=== PATIENT | female | born 1990 | race African-American/Black ===

== ENCOUNTER 2019-01-25 16:35 | Emergency (ER) | payer BC ==
[2019-01-25 18:37] LABS: Absolute Lymphocytes (CBC) 0.9 K/uL (0.7-4.9); Absolute Neutrophil 8.7 K/uL (1.8-8.0); Basophils % 0.8 % (0-1.3); Eosinophils % 0.7 % (0-4.4); Hematocrit 29.9 % (36.0-45.0); Lymphocytes % 8.6 % (15.3-44.8); MPV 9.3 fL (7.6-11.3); Monocytes % 9.6 % (3.3-12.3); RBC Red Blood Cell Count 4.92 M/uL (3.86-4.86)
[2019-01-25] MEDS ORDERED: MORPHINE 4 MG/ML SYR ONE (18:38)
[2019-01-25] MEDS ORDERED: ONDANSETRON 4 MG/2 ML VIAL ONE (18:38)
[2019-01-25] MEDS ORDERED: NA CHLORIDE 0.9% 1,000 ML ONE (18:38)
[2019-01-25 18:55] LABS: Urine Blood NEGATIVE (NEG); Urine Glucose NEGATIVE (NEG); Urine Protein 1+ (NEG); Urine Specific Gravity 1.015 (1.005-1.030); Urine pH 8.5 (5.0-7.0)
[2019-01-25 18:56] LABS: ALT/SGPT 19 U/L (12-78); AST/SGOT 10 U/L (15-37); Albumin 3.9 g/dL (3.4-5.0); Alkaline Phosphatase 94 U/L (45-117); BUN Blood Urea Nitrogen 9 mg/dL (7-18); Bicarbonate 28 mmol/L (21-32); Bilirubin Direct 0.1 mg/dL (0-0.2); Bilirubin Total 0.3 mg/dL (0.2-1.0); Glucose Level 83 mg/dL (74-106); Lipase 113 U/L (73-393); Potassium 3.5 mmol/L (3.5-5.1); Protein, Total 8.9 g/dL (6.4-8.2); Sodium Level 138 mmol/L (136-145)
[2019-01-25 19:20] LABS: Anisocytosis 2+; Blood Morphology Comment NOTED (NOT SEEN); Hypochromasia 2+; Platelet Estimate ADEQ; Urine White Blood Cell Casts OK
--- NOTE | 2019-01-25 19:43 | RAD REPORT ---
EXAM DESCRIPTION: CT - Abdomen Pelvis W Contrast - 01/25/2019 7:15 pm CLINICAL HISTORY: Abdominal pain with nausea. COMPARISON: none. TECHNIQUE: Computed axial tomography of the abdomen pelvis was obtained. 100 cc Isovue-300 was admin istered intravenously. Oral contrast was not requested which limits evaluation of bowel. All CT scans are performed using dose optimization technique as appropriate and may include automated exposure control or mA/KV adjustment according to patient size. FINDINGS: The liver, spleen, pancreas, adrenal and kidneys appear unremarkable. There is no evidence of diverticulitis. A normal appendix 4 centimeter left ovarian cyst. No significant free fluid IMPRESSION: 4 centimeter left ovarian cyst without significant free fluid. Follow up ultrasound in a couple months recommended to assess stability/resolution
--- NOTE | 2019-01-25 19:59 | EDPHYS ---
Physician Documentation [facility] Name: Lito Lee Age: 28 yrs Sex: Female : 1990 Arrival Date: 01/25/2019 Time: 16:38 Bed 28 Private MD: None, None ED Physician Alexy Leslie HPI: 01/25 18:15 This 28 yrs old Black Female presents to ER via Ambulatory with complaints of Abdominal pm1 Pain. 18:15 The patient presents with abdominal pain in the left lower quadrant. Onset: The pm1 symptoms/episode began/occurred today. The symptoms do not radiate. Associated signs and symptoms: Pertinent negatives: nausea, vomiting, and diarrhea, chest pain, dysuria, fever, shortness of breath. The symptoms are described as sharp. Modifying factors: The symptoms are alleviated by nothing, the symptoms are aggravated by nothing. Severity of pain: in the emergency department the pain has improved. The patient has not experienced similar symptoms in the past. The patient has not recently seen a physician. 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 - Social history:: Smoking status: . - Ebola Screening: : Patient denies travel to an Ebola-affected area in the 21 days before illness onset. ROS: 18:15 Constitutional: Negative for fever, chills, and weight loss, Eyes: Negative for injury, pm1 pain, redness, and discharge, ENT: Negative for injury, pain, and discharge, Neck: Negative for injury, pain, and swelling, Cardiovascular: Negative for chest pain, palpitations, and edema, Respiratory: Negative for shortness of breath, cough, wheezing, and pleuritic chest pain. 18:15 Back: Negative for injury and pain, : Negative for injury, bleeding, discharge, and swelling, MS/Extremity: Negative for injury and deformity, Skin: Negative for injury, rash, and discoloration, Neuro: Negative for headache, weakness, numbness, tingling, and seizure. 18:15 Abdomen/GI: Positive for abdominal pain, of the left lower quadrant, Negative for nausea, vomiting, and diarrhea. Exam: 18:15 Constitutional: This is a well developed, well nourished patient who is awake, alert, pm1 and in no acute distress. Head/Face: Normocephalic, atraumatic. Eyes: Pupils equal round and reactive to light, extra-ocular motions intact. Lids and lashes normal. Conjunctiva and sclera are non-icteric and not injected. Cornea within normal limits. Periorbital areas with no swelling, redness, or edema. ENT: Nares patent. No nasal discharge, no septal abnormalities noted. Tympanic membranes are normal and external auditory canals are clear. Oropharynx with no redness, swelling, or masses, exudates, or evidence of obstruction, uvula midline. Mucous membranes moist. Neck: Trachea midline, no thyromegaly or masses palpated, and no cervical lymphadenopathy. Supple, full range of motion without nuchal rigidity, or vertebral point tenderness. No Meningismus. Chest/axilla: Normal chest wall appearance and motion. Nontender with no deformity. No lesions are appreciated. Cardiovascular: Regular rate and rhythm with a normal S1 and S2. No gallops, murmurs, or rubs. Normal PMI, no JVD. No pulse deficits. Respiratory: Lungs have equal breath sounds bilaterally, clear to auscultation and percussion. No rales, rhonchi or wheezes noted. No increased work of breathing, no retractions or nasal flaring. 18:15 Back: No spinal tenderness. No costovertebral tenderness. Full range of motion. Skin: Warm, dry with normal turgor. Normal color with no rashes, no lesions, and no evidence of cellulitis. MS/ Extremity: Pulses equal, no cyanosis. Neurovascular intact. Full, normal range of motion. 18:15 Abdomen/GI: Inspection: abdomen appears normal, Bowel sounds: normal, in the left lower quadrant, Palpation: soft, mild abdominal tenderness, in the left lower quadrant, mass, is not appreciated, rebound tenderness, is not appreciated. 18:15 Neuro: Orientation: is normal, Motor: is normal, moves all fours, Sensation: is normal, no obvious gross deficits, Gait: is steady, at a normal pace, without difficulty. Vital Signs: 16:43 BP 123 / 61; Pulse 86; Resp 17; Temp 98.2(TE); Pulse Ox 100% on R/A; Pain 10/10; tw2 18:00 BP 114 / 72; Pulse 83; Resp 16; Temp 98.4; Pulse Ox 100% ; tf1 18:30 BP 122 / 98; Pulse 83; Resp 17; Pulse Ox 100% ; rv 19:00 BP 120 / 79; Pulse 80; Resp 16; Pulse Ox 100% ; rv 20:00 BP 112 / 69; Pulse 78; Resp 17; Pulse Ox 100% ; rv 20:30 BP 106 / 64; Pulse 80; Resp 16; Temp 98; Pulse Ox 100% ; rv MDM: 17:49 Patient medically screened. pm1 19:58 Data reviewed: vital signs. Data interpreted: Pulse oximetry: on room air is 100 %. pm1 Interpretation: normal. Counseling: I had a detailed discussion with the patient and/or guardian regarding: the historical points, exam findings, and any diagnostic results supporting the discharge/admit diagnosis, lab results, radiology results, the need for outpatient follow up, for definitive care, an OB/Gyne specialist, to return to the emergency department if symptoms worsen or persist or if there are any questions or concerns that arise at home. 01/25 17:56 Order name: Urine Dipstick--Ancillary (enter results); Complete Time: 19:43 eb 01/25 17:56 Order name: Urine --Ancillary (enter results); Complete Time: 19:43 eb 01/25 18:00 Order name: Basic Metabolic Panel; Complete Time: 19:43 pm1 01/25 18:00 Order name: CBC with Diff; Complete Time: 19:43 pm1 01/25 18:00 Order name: Creatinine for Radiology; Complete Time: 19:43 pm1 01/25 18:00 Order name: Hepatic Function; Complete Time: 19:43 pm1 01/25 18:00 Order name: Lipase; Complete Time: 19:43 pm1 01/25 18:00 Order name: IV Saline Lock; Complete Time: 18:30 pm1 01/25 18:13 Order name: CT Abd/Pelvis - W/Contrast: IV contrast only; Complete Time: 19:58 pm1 01/25 18:39 Order name: CBC Smear Scan; Complete Time: 19:43 EDMS 01/25 18:00 Order name: Labs collected and sent; Complete Time: 18:30 pm1 01/25 18:00 Order name: Urine Dipstick-Ancillary (obtain specimen); Complete Time: 18:08 pm1 01/25 18:00 Order name: Urine Test (obtain specimen); Complete Time: 18:08 pm1 Administered Medications: 18:30 Drug: morphine 4 mg Route: IVP; Site: left antecubital; rv 18:30 Drug: Zofran 4 mg Route: IVP; Site: left antecubital; rv 18:30 Drug: NS 0.9% 1000 ml Route: IV; Rate: 1000 ml; Site: left antecubital; rv 20:20 Follow up: IV Status: Completed infusion rv 20:20 Follow up: IV Intake: 1000ml rv 20:20 Drug: TORadol 30 mg Route: IVP; Site: left antecubital; rv Disposition: 01/26 09:07 Co-signature as Attending Physician, Alexy Leslie MD I agree with the assessment and kdr plan of care. Disposition: 01/25/19 19:58 Discharged to Home. Impression: Other ovarian cysts. - Condition is Stable. - Discharge Instructions: Ovarian Cyst. - Prescriptions for Naprosyn 500 mg Oral Tablet - take 1 tablet by ORAL route 2 times per day take with food; 30 tablet. Tylenol- Codeine #3 300-30 mg Oral Tablet - take 2 tablets by ORAL route every 6 hours As needed; 20 tablet. - Work release form, Medication Reconciliation Form, Thank You Letter, Antibiotic Education, Prescription Opioid Use form. - Follow up: Emergency Department; When: As needed; Reason: Worsening of condition. Follow up: Private Physician; When: 2 - 3 days; Reason: Recheck today's complaints, Continuance of care, Re-evaluation by your physician. - Problem is new. - Symptoms have improved. Signatures: Dispatcher [employer] EDMS Alexy Leslie MD MD kdr Marinas, Patrick, NP BOILER ASSISTANT OPERATOR pm1 Kanika Flynn RN RN tw2 Marco Cueva RN RN rv Corrections: (The following items were deleted from the chart) 01/25 21:19 19:58 01/25/2019 19:58 Discharged to Home. Impression: Other ovarian cysts. Condition rv is Stable. Forms are Medication Reconciliation Form, Thank You Letter, Antibiotic Education, Prescription Opioid Use. Follow up: Emergency Department; When: As needed; Reason: Worsening of condition. Follow up: Private Physician; When: 2 - 3 days; Reason: Recheck today's complaints, Continuance of care, Re-evaluation by your physician. Problem is new. Symptoms have improved. pm1
--- NOTE | 2019-01-25 19:59 | ER ---
Nurse's Notes [facility] Name: Lito Lee Age: 28 yrs Sex: Female : 1990 Arrival Date: 01/25/2019 Time: 16:38 Bed 28 Private MD: None, None Diagnosis: Other ovarian cysts Presentation: 01/25 16:42 Presenting complaint: Patient states: the bottom of my stomach hurts so bad its like a tw2 sharp pain real low, when the pain starts to hit me i get a little dizzy. Transition of care: patient was not received from another setting of care. Onset of symptoms was January 25, 2019. Risk Assessment: Do you want to hurt yourself or someone else? Patient reports no desire to harm self or others. Initial Sepsis Screen: Does the patient meet any 2 criteria? No. Patient's initial sepsis screen is negative. Does the patient have a suspected source of infection? No. Patient's initial sepsis screen is negative. Care prior to arrival: None. 16:42 Method Of Arrival: Ambulatory tw2 16:42 Acuity: ALISHA 3 tw2 Triage Assessment: 16:45 General: Appears in no apparent distress. Behavior is calm, cooperative, appropriate tw2 for age. Pain: Complains of pain in suprapubic area. GI: Reports lower abdominal pain. 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 - Social history:: Smoking status: . - Ebola Screening: : Patient denies travel to an Ebola-affected area in the 21 days before illness onset. Screenin:59 Abuse screen: Denies threats or abuse. Denies injuries from another. Nutritional rv screening: No deficits noted. Tuberculosis screening: No symptoms or risk factors identified. Fall Risk None identified. Assessment: 17:57 General: Appears in no apparent distress. comfortable, Behavior is calm, cooperative. rv Pain: Complains of pain in left lower quadrant. Pain: Quality of pain is described as sharp, Is intermittent. Neuro: Level of Consciousness is awake, alert, obeys commands, Oriented to person, place, time, situation. Cardiovascular: Patient's skin is warm and dry. Respiratory: Airway is patent. GI: Bowel sounds present X 4 quads. Abd is soft and non tender X 4 quads. : No signs and/or symptoms were reported regarding the genitourinary system. EENT: No signs and/or symptoms were reported regarding the EENT system. Derm: Skin is intact. Musculoskeletal: No signs and/or symptoms reported regarding the musculoskeletal system. Vital Signs: 16:43 BP 123 / 61; Pulse 86; Resp 17; Temp 98.2(TE); Pulse Ox 100% on R/A; Pain 10/10; tw2 18:00 BP 114 / 72; Pulse 83; Resp 16; Temp 98.4; Pulse Ox 100% ; tf1 18:30 BP 122 / 98; Pulse 83; Resp 17; Pulse Ox 100% ; rv 19:00 BP 120 / 79; Pulse 80; Resp 16; Pulse Ox 100% ; rv 20:00 BP 112 / 69; Pulse 78; Resp 17; Pulse Ox 100% ; rv 20:30 BP 106 / 64; Pulse 80; Resp 16; Temp 98; Pulse Ox 100% ; rv ED Course: 16:38 Patient arrived in ED. mr 16:39 None, None is Private Physician. mr 16:43 Triage completed. tw2 16:43 Arm band placed on. tw2 17:46 Telly Vela, AMARA is PHCP. pm1 17:46 Alexy Leslie MD is Attending Physician. pm1 17:49 Marco Cueva, OTONIEL is Primary Nurse. rv 17:59 Patient has correct armband on for positive identification. Placed in gown. Bed in low rv position. Call light in reach. Side rails up X 1. Pulse ox on. NIBP on. 18:15 Radiology exam delayed due to lab results not completed at this time. test vm2 not completed at this time. 18:23 Inserted saline lock: 20 gauge in left antecubital area, using aseptic technique. Blood rv collected. 19:16 CT Abd/Pelvis - W/Contrast: IV contrast only In Process Unspecified. EDMS 20:54 No provider procedures requiring assistance completed. IV discontinued, intact, rv bleeding controlled, No redness/swelling at site. Pressure dressing applied. Administered Medications: 18:30 Drug: morphine 4 mg Route: IVP; Site: left antecubital; rv 18:30 Drug: Zofran 4 mg Route: IVP; Site: left antecubital; rv 18:30 Drug: NS 0.9% 1000 ml Route: IV; Rate: 1000 ml; Site: left antecubital; rv 20:20 Follow up: IV Status: Completed infusion rv 20:20 Follow up: IV Intake: 1000ml rv 20:20 Drug: TORadol 30 mg Route: IVP; Site: left antecubital; rv Intake: 20:20 IV: 1000ml; Total: 1000ml. rv Outcome: 19:58 Discharge ordered by MD. pm1 20:54 Discharged to home ambulatory. rv 20:54 Condition: good 20:54 Discharge instructions given to patient, Instructed on discharge instructions, follow up and referral plans. medication usage, Demonstrated understanding of instructions, follow-up care, medications, Prescriptions given X 2. 21:19 Patient left the ED. rv Signatures: Dispatcher [employer] EDOH Anika Alston Patrick, AMARA INSTRUCTIONAL COORDINATOR pm1 Kanika Flynn RN RN 2 Wendy Mckenna 2 Marco Cueva RN RN rv Brenda Park, RN RN tf1 Corrections: (The following items were deleted from the chart) 18:36 18:00 BP 114 / 72; Resp 18bpm; Pulse Ox 100%; tf1 tf1 18:43 18:00 BP 114 / 72; Pulse 83bpm; Resp 16bpm; Pulse Ox 100%; tf1 tf1
[2019-01-25] MEDS ORDERED: KETOROLAC 30 MG/ML INJ ONE (20:31)
== END 2019-01-25 21:19 | disposition home or self-care (01) ==
LOC: ER 16:35
DX: N83.299 Other ovarian cyst, unspecified side (principal)
CPT/HCPCS: 36415; 74177; 80048; 80076; 81003; 81025; 83690; 85025; 96361; 96374; 96375; 99284; J2405; J7030; Q9967

== ENCOUNTER 2020-04-07 14:24 | Emergency (ER) | payer BC ==
--- OUTSIDE RECORDS SUMMARY | 2020-04-07 15:10 | XMS REPORT | Continuity of Care Document ---
:1990 Author Organization [facility] Address [address] [place] [address] Care Team Providers Name Role Phone Unavailable Unavailable Unavailable Payers Payer Name Policy Type Policy Number Effective Date Expiration Date S ource Problems This patient has no known problems. Allergies, Adverse Reactions, Alerts Allergy Allergy Status Severity Reaction(s) Onset Inactive Treating Comm ents Source Name Type Date Date Clinician No Known DA Active U 2016- [facility]ie 2-27 [facility] [place] Medications This patient has no known medications. Procedures This patient has no known procedures. Results Test Description Test Time Test Comments Results Result [facility] e Comments - US TRANSVAGINAL 2019-02-14 Patient Name: W/PELVIS 10:35:00 ZEINAB HARRIS Unit No: [id number] EXAMS: CPT CODE: [id number] US TRANSVAGINAL W/PELVIS 53682 Exam: Pelvic ultrasound. Exam date: February 14, 2019. CLINICAL HISTORY: Follow-up left ovarian cyst seen on outside CT. COMPARISON: None. Real-time transabdominal and transvaginal imaging of the pelvis with spectral Doppler analysis and color-flow imaging demonstrates a 90 x 39 x 44 mm uterus. The endometrium measures 5 mm No uterine anomalies are noted. The right ovary measures 30 x 24 x 23 mm and has a normal sonographic appearance. The left ovary measures 39 x 19 x 39 mm and has a normal sonographic appearance. No significant free fluid or adnexal masses are identified. IMPRESSION: Normal pelvic ultrasound. at 1035 Reported and signed by: Lucy Flood MD CC: Linsey Ramos MD Technologist: Rosalba Murray, [facility] Probe: [id number] Trnscrbd D/ (1035) Mary AnnCER Orig Print D/T: S: 02/14/2019 (1038) [facility] NAME: TORIBIO HARRISMARIAM Radiology Department PHYS: Linsey Leon MD [address] : 1990 AGE: 28 SEX: F [place] [address] LOC: F.RAD PHONE #: [phone] EXAM DATE: 02/14/2019 STATUS: REG CLI FAX #: [phone] RAD NO: Page 1 Signed Report Patient Name: ZEINAB HARRIS Unit No: [id number] EXAMS: CPT CODE: [id number] US TRANSVAGINAL W/PELVIS 02100 <Continued> [facility] NAME: STEVENTORIBIOMARIAM Radiology Department PHYS: Linsey Leon MD [address] : 1990 AGE: 28 SEX: F [place] [address] LOC: Tyree.RAD PHONE #: [phone] EXAM DATE: 02/14/2019 STATUS: REG CLI FAX #: [phone] RAD NO: Page 2 Signed Report - US PELVIS 2019-02-14 Patient Name: COMPLETE 10:35:00 ZEINAB HARRIS Unit No: [id number] EXAMS: CPT CODE: [id number] US PELVIS COMPLETE 85035 Exam: Pelvic ultrasound. Exam date: February 14, 2019. CLINICAL HISTORY: Follow-up left ovarian cyst seen on outside CT. COMPARISON: None. Real-time transabdominal and transvaginal imaging of the pelvis with spectral Doppler analysis and color-flow imaging demonstrates a 90 x 39 x 44 mm uterus. The endometrium measures 5 mm No uterine anomalies are noted. The right ovary measures 30 x 24 x 23 mm and has a normal sonographic appearance. The left ovary measures 39 x 19 x 39 mm and has a normal sonographic appearance. No significant free fluid or adnexal masses are identified. IMPRESSION: Normal pelvic ultrasound. at 1035 Reported and signed by: Lucy Flood MD CC: Linsey Ramos MD Technologist: Rosalba Murray RDMS Probe: Trnscrbd D/ (1035) [email or web address] Orig Print D/T: S: 02/14/2019 (1038) [facility] NAME: ZEINAB HARRIS Radiology Department PHYS: Linsey Leon MD [address] : 1990 AGE: 28 SEX: F [place] [address] LOC: F.RAD PHONE #: [phone] EXAM DATE: 02/14/2019 STATUS: REG CLI FAX #: [phone] RAD NO: Page 1 Signed Report Patient Name: ZEINAB HARRIS Unit No: [id number] EXAMS: CPT CODE: [id number] US PELVIS COMPLETE 75125 <Continued> [facility] NAME: ZEINAB HARRIS Radiology Department PHYS: Linsey Leon MD [address] : 1990 AGE: 28 SEX: F [place] [address] LOC: F.RAD PHONE #: [phone] EXAM DATE: 02/14/2019 STATUS: REG CLI FAX #: [phone] RAD NO: Page 2 Signed Report
--- NOTE | 2020-04-07 16:58 | EDPHYS ---
Physician Documentation [facility] Name: Lito Lee Age: 29 yrs Sex: Female : 1990 Arrival Date: 04/07/2020 Time: 14:32 Bed 11 Private MD: TASHA Physician Sesar De La Cruz HPI: 04/07 17:21 This 29 yrs old Black Female presents to ER via Ambulatory with complaints of Back snw Injury. 17:21 The patient presents with pain that is acute, and decreased range of motion, and an snw injury. The symptoms are located in the right trapezius, right scapular area and thoracic area. Onset: The symptoms/episode began/occurred suddenly, 2 day(s) ago, and became persistent. Associated signs and symptoms: Pertinent negatives: LOC. Severity of symptoms: At their worst the symptoms were moderate. The patient has not experienced similar symptoms in the past. It is unknown whether or not the patient has recently seen a physician. Pt states she slipped and fell backward, no LOC, c/o worsening stiffness and decreased ROM. 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 - Social history:: Smoking status: Patient denies any tobacco usage or history of. ROS: 17:19 Constitutional: Negative for fever, chills, and weight loss, Eyes: Negative for injury, snw pain, redness, and discharge, ENT: Negative for injury, pain, and discharge, Neck: Negative for injury, pain, and swelling, Cardiovascular: Negative for chest pain, palpitations, and edema, Respiratory: Negative for shortness of breath, cough, wheezing, and pleuritic chest pain, Abdomen/GI: Negative for abdominal pain, nausea, vomiting, diarrhea, and constipation, : Negative for injury, bleeding, discharge, and swelling, MS/Extremity: Negative for injury and deformity, positive for stiffness, tenderness to right shoulder and lateral neck Skin: Negative for injury, rash, and discoloration, Neuro: Negative for headache, weakness, numbness, tingling, and seizure. 17:19 Back: Positive for injury or acute deformity, decreased range of motion, pain with movement, of the right trapezius, right scapular area and thoracic area. Exam: 17:15 Constitutional: This is a well developed, well nourished patient who is awake, alert, snw and in no acute distress. Head/Face: Normocephalic, atraumatic. Eyes: Pupils equal round and reactive to light, extra-ocular motions intact. Lids and lashes normal. Conjunctiva and sclera are non-icteric and not injected. Cornea within normal limits. Periorbital areas with no swelling, redness, or edema. ENT: Nares patent. No nasal discharge, no septal abnormalities noted. Tympanic membranes are normal and external auditory canals are clear. Oropharynx with no redness, swelling, or masses, exudates, or evidence of obstruction, uvula midline. Mucous membranes moist. Chest/axilla: Normal chest wall appearance and motion. Nontender with no deformity. No lesions are appreciated. Cardiovascular: Regular rate and rhythm with a normal S1 and S2. No gallops, murmurs, or rubs. Normal PMI, no JVD. No pulse deficits. Respiratory: Lungs have equal breath sounds bilaterally, clear to auscultation and percussion. No rales, rhonchi or wheezes noted. No increased work of breathing, no retractions or nasal flaring. Abdomen/GI: Soft, non-tender, with normal bowel sounds. No distension or tympany. No guarding or rebound. No evidence of tenderness throughout. Back: No spinal tenderness. No costovertebral tenderness. Full range of motion. Skin: Warm, dry with normal turgor. Normal color with no rashes, no lesions, and no evidence of cellulitis. Neuro: Awake and alert, GCS 15, oriented to person, place, time, and situation. Cranial nerves II-XII grossly intact. Motor strength 5/5 in all extremities. Sensory grossly intact. Cerebellar exam normal. Normal gait. Psych: Awake, alert, with orientation to person, place and time. Behavior, mood, and affect are within normal limits. 17:15 Neck: External neck: is normal, Trachea: is midline with no obvious abnormalities, ROM/movement: pain, that is moderate, with any movement, limited range of motion, that is moderate, in any direction, Lymph nodes: no appreciated lymphadenopathy. 17:15 Musculoskeletal/extremity: Extremities: all appear grossly normal, with no appreciated pain with palpation, ROM: limited active range of motion due to pain, limited passive range of motion due to pain, Circulation is intact in all extremities. Sensation intact. 17:15 Neuro: Exam negative for acute changes. Vital Signs: 14:32 BP 112 / 70; Pulse 98; Resp 15 S; Temp 98.4(O); Pulse Ox 100% on R/A; Weight 61.23 kg ca1 (R); Height 5 ft. 6 in. (167.64 cm) (R); 14:32 Body Mass Index 21.79 (61.23 kg, 167.64 cm) ca1 MDM: 16:21 Patient medically screened. snw 17:18 Data reviewed: vital signs, nurses notes. Data interpreted: Pulse oximetry: on room air snw is 100 %. Interpretation: normal. Counseling: I had a detailed discussion with the patient and/or guardian regarding: the historical points, exam findings, and any diagnostic results supporting the discharge/admit diagnosis, the need for outpatient follow up, to return to the emergency department if symptoms worsen or persist or if there are any questions or concerns that arise at home. Response to treatment: the patient's symptoms have mildly improved after treatment. Special discussion: Based on the history and exam findings, there is no indication for further emergent testing or inpatient evaluation. I discussed with the patient/guardian the need to see the primary care provider for further evaluation of the symptoms. Administered Medications: No medications were administered Disposition: 17:37 Co-signature as Attending Physician, Sesar De La Cruz MD I agree with the assessment and john plan of care. Disposition: 04/07/20 16:58 Discharged to Home. Impression: Radiculopathy, cervical region, Fall on same level from slipping, tripping and stumbling, Muscle spasm. - Condition is Stable. - Discharge Instructions: Cervical Radiculopathy, Fall Prevention in the Home, Muscle Cramps and Spasms, Muscle Strain, Cryotherapy, Heat Therapy, Radicular Pain. - Prescriptions for Ultram 50 mg Oral Tablet - take 1 tablet by ORAL route every 6 hours As needed; 12 tablet. Prednisone 20 mg Oral Tablet - take 2 tablet by ORAL route once daily for 5 days; 10 tablet. orphenadrine citrate 100 mg Oral Tablet Sustained Release - take 1 tablet by ORAL route 2 times per day As needed; 20 tablet. - Work release form, Medication Reconciliation Form, Thank You Letter, Antibiotic Education, Prescription Opioid Use form. - Follow up: Private Physician; When: 5 - 6 days; Reason: Recheck today's complaints, Continuance of care, Re-evaluation by your physician. Follow up: Emergency Department; When: As needed; Reason: Worsening of condition. Signatures: Dispatcher [employer] EDOK Sesar De La Cruz MD MD cha Waters, Shelly, TOBACCO BALER-C TOBACCO BALER-Csnw Karen Santana, OTONIEL RN iw Yasmin, OTONIEL Busch RN ca1 Corrections: (The following items were deleted from the chart) 17:09 16:58 04/07/2020 16:58 Discharged to Home. Impression: Radiculopathy, cervical region; iw Fall on same level from slipping, tripping and stumbling; Muscle spasm. Condition is Stable. Forms are Medication Reconciliation Form, Thank You Letter, Antibiotic Education, Prescription Opioid Use. Follow up: Private Physician; When: 5 - 6 days; Reason: Recheck today's complaints, Continuance of care, Re-evaluation by your physician. Follow up: Emergency Department; When: As needed; Reason: Worsening of condition. snw
--- NOTE | 2020-04-07 16:58 | ER ---
Nurse's Notes [facility] Name: Lito Lee Age: 29 yrs Sex: Female : 1990 Arrival Date: 04/07/2020 Time: 14:32 Bed 11 Private MD: Diagnosis: Radiculopathy, cervical region;Fall on same level from slipping, tripping and stumbling;Muscle spasm Presentation: 04/07 14:32 Chief complaint: Patient states: Slipped and fell backwards on Tuesday. Tuesday was ca1 sore. Reports pain on upper back, shoulders worst on R shoulder, a little neck pain. Coronavirus screen: Client denies travel out of the [place] in the last 14 days. At this time, the client does not indicate any symptoms associated with coronavirus-19. Ebola Screen: Patient negative for fever greater than or equal to 101.5 degrees Fahrenheit, and additional compatible Ebola Virus Disease symptoms Patient denies exposure to infectious person. Patient denies travel to an Ebola-affected area in the 21 days before illness onset. No symptoms or risks identified at this time. Initial Sepsis Screen: Does the patient meet any 2 criteria? No. Patient's initial sepsis screen is negative. Does the patient have a suspected source of infection? No. Patient's initial sepsis screen is negative. Risk Assessment: Do you want to hurt yourself or someone else? Patient reports no desire to harm self or others. Onset of symptoms was April 07, 2020. 14:32 Method Of Arrival: Ambulatory ca1 14:32 Acuity: ALISHA 4 ca1 Triage Assessment: 17:00 General: Appears in no apparent distress. Behavior is calm, cooperative. 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 - Social history:: Smoking status: Patient denies any tobacco usage or history of. Screenin:08 Abuse screen: Denies threats or abuse. Denies injuries from another. Nutritional iw screening: No deficits noted. Tuberculosis screening: No symptoms or risk factors identified. Fall Risk None identified. Fall in past 12 months (25 points). Assessment: 16:40 General: Appears in no apparent distress. Behavior is calm, cooperative. Pain: iw Complains of pain in thoracic area and right scapular area and right trapezius. Neuro: Level of Consciousness is Oriented to person, place, time, situation, Moves all extremities. Full function. Cardiovascular: Patient's skin is warm and dry. Respiratory: Respiratory effort is even, unlabored, Respiratory pattern is regular, symmetrical. Derm: Skin is intact, is healthy with good turgor. Musculoskeletal: Range of motion: intact in all extremities. Vital Signs: 14:32 BP 112 / 70; Pulse 98; Resp 15 S; Temp 98.4(O); Pulse Ox 100% on R/A; Weight 61.23 kg ca1 (R); Height 5 ft. 6 in. (167.64 cm) (R); 14:32 Body Mass Index 21.79 (61.23 kg, 167.64 cm) ca1 ED Course: 14:32 Patient arrived in ED. ca1 14:35 Triage completed. ca1 14:35 Arm band placed on right wrist. ca1 16:20 Ping Owusu FNP-C is PHCP. snw 16:20 Sesar De La Cruz MD is Attending Physician. snw 16:40 Patient has correct armband on for positive identification. iw 16:54 Karen Santana, RN is Primary Nurse. iw 17:08 No provider procedures requiring assistance completed. Patient did not have IV access iw during this emergency room visit. Administered Medications: No medications were administered Outcome: 16:58 Discharge ordered by . snw 17:08 Discharged to home ambulatory. iw 17:08 Condition: good 17:08 Discharge instructions given to patient, Instructed on discharge instructions, follow up and referral plans. Demonstrated understanding of instructions, follow-up care, Prescriptions given X 3. 17:09 Patient left the ED. iw Signatures: Ping Owusu FNP-C SLOT FLOORMAN-Csnw Karen Santana, RN RN iw Jo-Ann Hoffman RN RN ca1
[2020-04-07] MEDS ORDERED: ACETAMINOPHEN 500 MG TAB ONE (17:11)
[2020-04-07] MEDS ORDERED: KETOROLAC 30 MG/ML INJ ONE (17:11)
[2020-04-07 17:13] VITALS: BP 112/70; TEMP 98.4; O2SAT 100
== END 2020-04-07 17:09 | disposition home or self-care (01) ==
LOC: ER 14:24
DX: M54.12 Radiculopathy, cervical region (principal); M62.838 Other muscle spasm; W01.0XXA Fall on same level from slipping, tripping and stumbling without subsequent striking against object, initial encounter; Y93.9 Activity, unspecified; Y92.9 Unspecified place or not applicable
CPT/HCPCS: 99282

== ENCOUNTER 2020-05-10 11:22 | Emergency (ER) | payer BC ==
--- OUTSIDE RECORDS SUMMARY | 2020-05-10 11:24 | XMS REPORT | Continuity of Care Document ---
:1990 Author Organization [facility] t Address [address] [place] [address] Care Team Providers Name Role Phone Unavailable [...] [facility] [place] Medications This patient has no known medications. Procedures This patient has no known procedures. Results Test Description Test Time Test Comments Results Result [facility] e Comments - US TRANSVAGINAL 2019-02-14 Patient Name: W/PELVIS 10:35:00 ZEINAB HARRIS Unit No: [id number] EXAMS: CPT CODE: [id number] US TRANSVAGINAL W/PELVIS [id number] Exam: Pelvic ultrasound. Exam date: February 14, [...] CC: Linsey Ramos MD Technologist: Rosalba Murray, [facility] Probe: [id number] Trnscrbd D/ (1035) Mary AnnCER Orig Print D/T: S: 02/14/2019 (1038) [facility] NAME: TORIBIO HARRISMARIAM Radiology Department PHYS: Linsey Leon MD [address] : 1990 AGE: 28 SEX: F [place] [id number] LOC: F.RAD PHONE #: [phone] EXAM DATE: 02/14/2019 STATUS: REG CLI FAX #: [phone] RAD NO: Page 1 Signed Report Patient Name: ZEINAB HARRIS Unit No: [id number] EXAMS: CPT CODE: [id number] US TRANSVAGINAL W/PELVIS [id number] <Continued> [facility] NAME: STEVENTORIBIOMARIAM Radiology Department PHYS: Linsey Leon MD [address] : 1990 AGE: 28 SEX: F [place] [address] LOC: Tyree.RAD PHONE #: [phone] EXAM DATE: 02/14/2019 STATUS: REG CLI FAX #: [phone] RAD NO: Page 2 Signed Report - US PELVIS 2019-02-14 Patient Name: COMPLETE 10:35:00 ZEINAB HARRIS Unit No: [id number] EXAMS: CPT CODE: [id number] US PELVIS COMPLETE [id number] Exam: Pelvic ultrasound. Exam date: February 14, [...] Orig Print D/T: S: 02/14/2019 (1038) [facility] NAME: ZEINAB HARRIS Radiology Department PHYS: Linsey Leon MD [address] : 1990 AGE: 28 SEX: F [place] [address] LOC: F.RAD PHONE #: [phone] EXAM DATE: 02/14/2019 STATUS: REG CLI FAX #: [phone] RAD NO: Page 1 Signed Report Patient Name: ZEINAB HARRIS Unit No: [id number] EXAMS: CPT CODE: [id number] US PELVIS COMPLETE [id number] <Continued> [facility] NAME: ZEINAB HARRIS Radiology Department PHYS: Linsey Leon MD [address] : 1990 AGE: 28 SEX: F [place] [address] LOC: F.RAD PHONE #: [phone] EXAM DATE: 02/14/2019 STATUS: REG CLI FAX #: [phone] RAD NO: Page 2 Signed Report
--- NOTE | 2020-05-10 12:02 | ER ---
Nurse's Notes [facility] Name: Lito Lee Age: 29 yrs Sex: Female : 1990 Arrival Date: 05/10/2020 Time: 11:25 Bed 14 Private MD: Diagnosis: Dental pain Presentation: 05/10 11:36 Chief complaint: Patient states: was seen at dentist on 3rd, was put on abx, did not iw give her pain medicine, pain to left lower jaw, was told she had a big cavity that's pressing on a nerve. Coronavirus screen: At this time, the client does not indicate any symptoms associated with coronavirus-19. Ebola Screen: Patient negative for fever greater than or equal to 101.5 degrees Fahrenheit, and additional compatible Ebola Virus Disease symptoms Patient denies exposure to infectious person. Patient denies travel to an Ebola-affected area in the 21 days before illness onset. No symptoms or risks identified at this time. Initial Sepsis Screen: Does the patient meet any 2 criteria? No. Patient's initial sepsis screen is negative. Does the patient have a suspected source of infection? No. Patient's initial sepsis screen is negative. Risk Assessment: Do you want to hurt yourself or someone else? Patient reports no desire to harm self or others. Onset of symptoms was May 08, 2020. 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 - Social history:: Smoking status: Patient denies any tobacco usage or history of. Screenin:30 Abuse screen: Denies threats or abuse. Nutritional screening: No deficits noted. aa5 Tuberculosis screening: No symptoms or risk factors identified. Fall Risk None identified. Assessment: 12:25 General: Appears uncomfortable, Behavior is calm, cooperative. Pain: Complains of pain aa5 in lower left second molar (#18) Pain currently is 10 out of 10 on a pain scale. Is continuous. Neuro: Level of Consciousness is awake, alert, obeys commands, Oriented to person, place, time, situation. Cardiovascular: Patient's skin is warm and dry. Respiratory: Airway is patent Respiratory effort is even, unlabored, Respiratory pattern is regular, symmetrical. GI: No signs and/or symptoms were reported involving the gastrointestinal system. : No signs and/or symptoms were reported regarding the genitourinary system. EENT: Reports pain in lower left second molar (#18). Derm: Skin is dry, Skin is normal, Skin temperature is warm. Musculoskeletal: Range of motion: intact in all extremities. 12:50 Neuro: Level of Consciousness is awake, alert, obeys commands, Oriented to person, aa5 place, time, situation. Respiratory: Airway is patent Respiratory effort is even, unlabored, Respiratory pattern is regular, symmetrical. Derm: Skin is dry, Skin is normal, Skin temperature is warm. Vital Signs: 11:36 BP 125 / 79; Pulse 75; Resp 16; Temp 98.1; Pulse Ox 100% on R/A; Weight 63.5 kg; Height iw 5 ft. 6 in. (167.64 cm); Pain 10/10; 11:36 Body Mass Index 22.60 (63.50 kg, 167.64 cm) iw ED Course: 11:25 Patient arrived in ED. ds1 11:38 Triage completed. iw 11:51 Ping Owusu FNP-C [facility]. snw 11:51 Sesar De La Cruz MD is Attending Physician. snw 12:01 Alejandrina Medrano, RN is Primary Nurse. aa5 12:30 Arm band placed on. aa5 12:50 Patient did not have IV access during this emergency room visit. aa5 12:50 No provider procedures requiring assistance completed. aa5 18:02 Patient has correct armband on for positive identification. Bed in low position. Call aa5 light in reach. Side rails up X 1. Administered Medications: 12:30 Drug: TORadol 60 mg Route: IM; Site: left gluteus; aa5 12:50 Follow up: Response: No adverse reaction aa5 12:30 Drug: [place] 5 mg-325 mg 1 tabs Route: PO; aa5 12:50 Follow up: Response: No adverse reaction aa5 Outcome: 12:02 Discharge ordered by . snw 12:50 Discharged to home ambulatory. aa5 12:50 Condition: stable 12:50 Discharge instructions given to patient, Instructed on discharge instructions, follow up and referral plans. medication usage, Demonstrated understanding of instructions, follow-up care, medications, Prescriptions given X 2. 12:52 Patient left the ED. aa5 Signatures: Ping Owusu, ORE PUNCHER-C ORE PUNCHER-Csnw Chitra Reno ds1 Karen Santana RN RN iw Alejandrina Medrano RN RN aa5
--- NOTE | 2020-05-10 12:02 | EDPHYS ---
Physician Documentation [facility] Name: Lito Lee Age: 29 yrs Sex: Female : 1990 Arrival Date: 05/10/2020 Time: 11:25 Bed 14 Private MD: ED Physician Sesar De La Cruz HPI: 05/10 12:44 This 29 yrs old Black Female presents to ER via Ambulatory with complaints of Toothache.snw 12:44 The patient presents with pain. The problem is located in the lower left second molar snw (#18). Onset: The symptoms/episode began/occurred suddenly, 4 day(s) ago. Duration: The symptoms are continuous. Modifying factors: The symptoms are alleviated by nothing. Severity of symptoms: At their worst the symptoms were moderate, severe. The patient has not experienced similar symptoms in the past. The patient has been recently seen by a physician: Went to dentist on the 2nd, given amoxil. No pain medications. Pt was told she has a large cavity pushing down onto the nerve.. 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 - Social history:: Smoking status: Patient denies any tobacco usage or history of. ROS: 12:44 Constitutional: Negative for fever, chills, and weight loss, Eyes: Negative for injury, snw pain, redness, and discharge, Neck: Negative for injury, pain, and swelling, Cardiovascular: Negative for chest pain, palpitations, and edema, Respiratory: Negative for shortness of breath, cough, wheezing, and pleuritic chest pain, Abdomen/GI: Negative for abdominal pain, nausea, vomiting, diarrhea, and constipation, Back: Negative for injury and pain, : Negative for injury, bleeding, discharge, and swelling, MS/Extremity: Negative for injury and deformity, Skin: Negative for injury, rash, and discoloration, Neuro: Negative for headache, weakness, numbness, tingling, and seizure, Psych: Negative for depression, anxiety, suicide ideation, homicidal ideation, and hallucinations. 12:44 ENT: Positive for dental pain, of the lower left second molar (#18). Exam: 12:43 Constitutional: This is a well developed, well nourished patient who is awake, alert, snw and in no acute distress. Head/Face: Normocephalic, atraumatic. Eyes: Pupils equal round and reactive to light, extra-ocular motions intact. Lids and lashes normal. Conjunctiva and sclera are non-icteric and not injected. Cornea within normal limits. Periorbital areas with no swelling, redness, or edema. Neck: Trachea midline, no thyromegaly or masses palpated, and no cervical lymphadenopathy. Supple, full range of motion without nuchal rigidity, or vertebral point tenderness. No Meningismus. Chest/axilla: Normal chest wall appearance and motion. Nontender with no deformity. No lesions are appreciated. Cardiovascular: Regular rate and rhythm with a normal S1 and S2. No gallops, murmurs, or rubs. Normal PMI, no JVD. No pulse deficits. Respiratory: Lungs have equal breath sounds bilaterally, clear to auscultation and percussion. No rales, rhonchi or wheezes noted. No increased work of breathing, no retractions or nasal flaring. Abdomen/GI: Soft, non-tender, with normal bowel sounds. No distension or tympany. No guarding or rebound. No evidence of tenderness throughout. Back: No spinal tenderness. No costovertebral tenderness. Full range of motion. Skin: Warm, dry with normal turgor. Normal color with no rashes, no lesions, and no evidence of cellulitis. MS/ Extremity: Pulses equal, no cyanosis. Neurovascular intact. Full, normal range of motion. Neuro: Awake and alert, GCS 15, oriented to person, place, time, and situation. Cranial nerves II-XII grossly intact. Motor strength 5/5 in all extremities. Sensory grossly intact. Cerebellar exam normal. Normal gait. Psych: Awake, alert, with orientation to person, place and time. Behavior, mood, and affect are within normal limits. 12:43 ENT: External ear(s): are unremarkable, Nose: is normal, Mouth: is normal, Oral mucosa: normal, Gums: normal with healthy appearance, Dental exam: pain, that is moderate, that is severe, specifically in the lower left second molar (#18), Voice: is normal. Vital Signs: 11:36 BP 125 / 79; Pulse 75; Resp 16; Temp 98.1; Pulse Ox 100% on R/A; Weight 63.5 kg; Height iw 5 ft. 6 in. (167.64 cm); Pain 10/10; 11:36 Body Mass Index 22.60 (63.50 kg, 167.64 cm) iw MDM: 11:54 Patient medically screened. snw 12:44 Data reviewed: vital signs, nurses notes. Data interpreted: Pulse oximetry: on room air snw is 100 %. Interpretation: normal. Counseling: I had a detailed discussion with the patient and/or guardian regarding: the historical points, exam findings, and any diagnostic results supporting the discharge/admit diagnosis, the need for outpatient follow up, to return to the emergency department if symptoms worsen or persist or if there are any questions or concerns that arise at home. Response to treatment: the patient's symptoms have mildly improved after treatment. Special discussion: Based on the history and exam findings, there is no indication for further emergent testing or inpatient evaluation. I discussed with the patient/guardian the need to see a dentist for further evaluation of the symptoms. I discussed with the patient/guardian the need to see the primary care provider for further evaluation of the symptoms. Administered Medications: 12:30 Drug: TORadol 60 mg Route: IM; Site: left gluteus; aa5 12:50 Follow up: Response: No adverse reaction aa5 12:30 Drug: Walden 5 mg-325 mg 1 tabs Route: PO; aa5 12:50 Follow up: Response: No adverse reaction aa5 Disposition: 05/10/20 12:02 Discharged to Home. Impression: Dental pain. - Condition is Stable. - Discharge Instructions: Dental Caries, Adult, Dental Pain. - Prescriptions for Ultram 50 mg Oral Tablet - take 1 tablet by ORAL route every 6 hours As needed; 12 tablet. promethazine 25 mg Oral Tablet - take 1 tablet by ORAL route every 6 hours As needed; 20 tablet. - Work release form, Medication Reconciliation Form, Thank You Letter, Antibiotic Education, Prescription Opioid Use form. - Follow up: Emergency Department; When: As needed; Reason: Worsening of condition. Follow up: Private Physician; When: 2 - 3 days; Reason: Recheck today's complaints, Continuance of care, Re-evaluation by your physician. Addendum: 05/13/2020 10:19 Co-signature as Attending Physician, Sesar De La Cruz MD I agree with the assessment and c benson plan of care. Signatures: Sesar De La Cruz MD MD cha Waters, Shelly, INFORMATION CLERK [employer] INFORMATION CLERK [employer] Karen Santana, RN RN iw Alejandrina Medrano RN RN aa5 Corrections: (The following items were deleted from the chart) 05/10 12:52 12:02 05/10/2020 12:02 Discharged to Home. Impression: Dental pain. Condition is aa5 Stable. Forms are Medication Reconciliation Form, Thank You Letter, Antibiotic Education, Prescription Opioid Use. Follow up: Emergency Department; When: As needed; Reason: Worsening of condition. Follow up: Private Physician; When: 2 - 3 days; Reason: Recheck today's complaints, Continuance of care, Re-evaluation by your physician. snw
[2020-05-10] MEDS ORDERED: HYDROCODONE/APAP 5/325 MG TAB ONE (12:27)
[2020-05-10] MEDS ORDERED: KETOROLAC 30 MG/ML INJ ONE (12:27)
[2020-05-11 12:21] VITALS: BP 125/79; TEMP 98.1; O2SAT 100
== END 2020-05-10 12:52 | disposition home or self-care (01) ==
LOC: ER 11:22
DX: K08.89 Other specified disorders of teeth and supporting structures (principal)
CPT/HCPCS: 96372; 99283